=== PATIENT | male | born 1955 | race African-American/Black ===

== ENCOUNTER 2018-09-02 12:01 | Emergency (ER) | payer MEDICAID ==
[~2018-09-02] VITALS: Ht 188 cm; Wt 120.2 kg
--- NOTE | 2018-09-02 12:24 | NUR ---
came to er complaints of chest pain and shortness of breath with some wheezing. placed on monitor
--- NOTE | 2018-09-02 12:28 | NUR ---
ekg done which shows stemi . ekg faxed to [facility] er
[2018-09-02] MEDS ORDERED: Nitroglycerin 2% oint pkt TOPIC ONE (12:30)
--- NOTE | 2018-09-02 12:30 | NUR ---
patient has been accepted at [facility] er 911 has been summond to come for transfer. complaints of chest pain 07/03. meds given as orderd
[2018-09-02] MEDS ORDERED: GLIPIZIDE5 MG ORAL (12:31)
[2018-09-02] MEDS ORDERED: ASPIR 8181 MG ORAL (12:31)
[2018-09-02] MEDS ORDERED: ATORVASTATIN CA20 MG ORAL (12:31)
[2018-09-02] MEDS ORDERED: FUROSEMIDE20 M1 ORAL (12:31)
[2018-09-02] MEDS ORDERED: GABAPENTIN300 MG ORAL (12:31)
[2018-09-02] MEDS ORDERED: HYZAAR 100-251 EACH ORAL (12:31)
[2018-09-02] MEDS ORDERED: METFORMIN HCL500 M1 ORAL (12:31)
[2018-09-02] MEDS ORDERED: AMLODIPINE BESY10 MG ORAL (12:31)
[2018-09-02] MEDS ORDERED: Heparin 5000 units/ml inj IV ONE (12:45)
--- NOTE | 2018-09-02 12:45 | Emergency Room Report ---
History of Present Illness General Chief Complaint: Dyspnea/Respdistress Source: Patient Present Illness HPI Patient presents with weakness and shortness of breath chest pain vomiting and diarrhea for 4 days. He started having chest pain that was more constant on . No vomiting blood. No melena or hematochezia. He feels some crampiness in his abdomen. Diaphoresis without fevers on occasion. Generalized weakness. Seen at [facility] and sent for evaluation for gastroenteritis and poorly controlled diabetes. He is a type II diabetic on insulin also. He stopped taking his insulin when he stopped eating. He's had dyspnea on exertion and some orthopnea. He also has some swelling in his legs. He denies having prior congestive heart failure. The pain in his chest is rated 7/10 and worse with exertion. No palpitations. No joint pain, rashes, headache. Allergies: Coded Allergies: No Known Allergies (Unverified , 09/02/18) Patient History Past Medical History: see triage record Social History: Denies: smoking Social History Narrative with Niece Reviewed Nursing Documentation: PMH: Agreed; PSxH: Agreed Nursing Documentation-PMH Past Medical History: No History, Except For Hx Hypertension: Yes Hx Diabetes: Yes Review of Systems All Other Systems: negative except mentioned in HPI Physical Exam Vital Signs Date Time Temp Pulse Resp B/P (MAP) Pulse Ox O2 Delivery O2 Flow Rate FiO2 09/02/18 12:10 98.6 91 16 127/75 85 Room Air Sp02 EP Interpretation: reviewed, abnormal - Interpreted as low by me General Appearance: no apparent distress, GCS 15, other - ill Head: normocephalic Eyes: bilateral eye normal inspection, bilateral eye PERRL ENT: moist mucus membranes Neck: supple Respiratory: rales - bilat Cardiovascular #1: regular rate, rhythm, edema - bilat Cardiovascular #2: 2+ radial (R) Gastrointestinal: normal inspection, normal bowel sounds, non tender, no mass, non-distended Musculoskeletal: back normal, normal range of motion, no calf tenderness Neurologic: alert, oriented x3 Skin: normal inspection, warm/dry Procedures Critical Care Time Critical Care Time Total Critical Care Time: 30 min bedside evaluation and treatment excludes procedures (EKG). Reason for critical care: STEMI, CHF, hyperglycemia Possible complications: hypotension, hypertension, MN, shock, arrhythmias, metabolic acidosis, end organ damage, respiratory failure. Interventions: aspirin, plavix, lasix, heparin, insulin Course: Diabetic patient presented with GI symptoms and chest pain. EKG revealed posterior STEMI. Aspirin, Plavix administered. Mediate contact with [facility] lead to acceptance. Heparin administered. Patient with CHF on chest x- ray and Lasix administered. Glucose greater than 400 and insulin administered. Presented to [facility] with emergent transfer [facility]. [facility] attending. Consultations: nursing staff, EMS, family Performed by: Dr. Love Tolerated well condition = critical but stable for transfer labs called to Medical Decision Making Diagnostic Impression: Primary Impression: ST elevation myocardial infarction (STEMI) of true posterior wall Additional Impressions: CHF (congestive heart failure) Qualified Codes: I50.9 - Heart failure, unspecified Diabetes Qualified Codes: E11.8 - Type 2 diabetes mellitus with unspecified complications; Z79.4 - snf (current) use of insulin Renal failure Qualified Codes: N17.9 - Acute kidney failure, unspecified Nausea vomiting and diarrhea ER Course Patient presents with symptoms of gastroenteritis but also has chest pain and rales. Differential includes acute microinfarction, congestive heart failure, diabetic ketoacidosis amongst others. Patient be evaluated with EKG, chest x- ray and labs. As he has evidence of fluid overload we are unable to give him a fluid bolus at this time. He will be treated with antiemetics and Pepcid. EKG with posterior myocardial infarction STEMI. [facility] contacted immediately ( EKG fax @ 12:34). Patient was presented to Dr. Santamaria at 1240 and accepted. Patient given aspirin, nitrates, Lasix, Plavix and heparin. Insulin also given. Report to [facility]. Emergent transfer. Labs returned after patient transferred. Leukocytosis, renal failure, elevated BNP. Elevated troponin Labs reported to Dr. Santamaria at [facility]. (at that time, he was being evaluated by Cardiology in ED). Laboratory Tests Test 09/02/18 12:38 White Blood Count 15.5 K/UL (4.8-10.8) H Red Blood Count 4.53 M/UL (4.70-6.10) L Hemoglobin 13.9 G/DL (14.2-18.0) L Hematocrit 40.6 % (42.0-52.0) L Mean Corpuscular Volume 90 FL (80-99) Mean Corpuscular Hemoglobin 30.7 PG (27.0-31.0) Mean Corpuscular Hemoglobin Concent 34.2 G/DL (32.0-36.0) Red Cell Distribution Width 11.1 % (11.6-14.8) L Platelet Count 304 K/UL (150-450) Mean Platelet Volume 7.6 FL (6.5-10.1) Neutrophils (%) (Auto) 83.5 % (45.0-75.0) H Lymphocytes (%) (Auto) 7.3 % (20.0-45.0) L Monocytes (%) (Auto) 8.0 % (1.0-10.0) Eosinophils (%) (Auto) 0.0 % (0.0-3.0) Basophils (%) (Auto) 1.2 % (0.0-2.0) Prothrombin Time 10.6 SEC (9.30-11.50) Prothrombin Time INR 1.0 (0.9-1.1) PTT 28 SEC (23-33) Sodium Level 127 MMOL/L (136-145) L Potassium Level 4.7 MMOL/L (3.5-5.1) Chloride Level 90 MMOL/L (98-107) L Carbon Dioxide Level 25 MMOL/L (21-32) Anion Gap 13 mmol/L (5-15) Blood Urea Nitrogen 46 mg/dL (7-18) H Creatinine 2.2 MG/DL (0.55-1.30) H Estimate Glomerular Filtration Rate 37.2 mL/min (>60) Glucose Level 444 MG/DL (74-106) H Calcium Level 9.4 MG/DL (8.5-10.1) Total Bilirubin 1.0 MG/DL (0.2-1.0) Aspartate Amino Transferase (AST) 215 U/L (15-37) H Alanine Aminotransferase (ALT) 80 U/L (12-78) H Alkaline Phosphatase 90 U/L (46-116) Total Creatine Kinase 2439 U/L (26-308) H Troponin I 28.619 ng/mL (0.000-0.056) Pro-B-Type Natriuretic Peptide 4642 pg/mL (0-125) H Total Protein 8.1 G/DL (6.4-8.2) Albumin 3.4 G/DL (3.4-5.0) Globulin 4.7 g/dL Albumin/Globulin Ratio 0.7 (1.0-2.7) L EKG Diagnostic Results Rate: normal Rhythm: NSR ST Segments: other - Posterior MN Rhythm Strip Diag. Results EP Interpretation: yes Rhythm: NSR, no PVC's, no ectopy Chest X-Ray Diagnostic Results Chest X-Ray Diagnostic Results : Chest X-Ray Ordered: Yes # of Views/Limited/Complete: 1 View Indication: Other EP Interpretation: Yes Interpretation: no effusion, no pneumothorax, other - pulm edema Impression: Other Electronically Signed by: Electronically signed by Medhat Love MD Last Vital Signs Date Time Temp Pulse Resp B/P (MAP) Pulse Ox O2 Delivery O2 Flow Rate FiO2 09/02/18 12:10 98.6 91 16 127/75 85 Room Air Status: improved Disposition: [facility] - Higher level of care Condition: Critical Medhat Love MD Sep 02, 2018 12:45
--- NOTE | 2018-09-02 12:54 | NUR ---
ED Nurse Note: Patient denies having any recent surgery, procedure or bleeding.
[2018-09-02 12:56] LABS: BASOPHILS % (AUTO) 1.2 % (0.0-2.0); HEMATOCRIT 40.6 % (42.0-52.0); HEMOGLOBIN 13.9 G/DL (14.2-18.0); LYMPHOCYTES % (AUTO) 7.3 % (20.0-45.0); MEAN CORPUSCULAR VOLUME 90 FL (80-99); NEUTROPHILS % (AUTO) 83.5 % (45.0-75.0); PLATELET COUNT 304 K/UL (150-450); RED BLOOD COUNT 4.53 M/UL (4.70-6.10); RED CELL DISTRIBUTION WIDTH 11.1 % (11.6-14.8); WHITE BLOOD COUNT 15.5 K/UL (4.8-10.8)
[2018-09-02 13:00] VITALS: BP 126/70
[2018-09-02] MEDS ORDERED: Insulin Human Regular 100units/ml 3ml IV ONE (13:00)
--- NOTE | 2018-09-02 13:00 | NUR ---
[facility] is here to transport patient to [facility]
[2018-09-02] MEDS ORDERED: Insulin Human Regular 100units/ml 3ml ONE (13:02)
[2018-09-02 13:05] VITALS: BP 126/70
--- NOTE | 2018-09-02 13:05 | NUR ---
patient left the er with [facility]
[2018-09-02 13:16] LABS: ANION GAP 13 mmol/L (5-15); BLOOD UREA NITROGEN 46 mg/dL (7-18); CALCIUM 9.4 MG/DL (8.5-10.1); CARBON DIOXIDE 25 MMOL/L (21-32); CHLORIDE 90 MMOL/L (98-107); CREATININE 2.2 MG/DL (0.55-1.30); POTASSIUM 4.7 MMOL/L (3.5-5.1); SODIUM 127 MMOL/L (136-145)
[2018-09-02 13:30] LABS: ALANINE AMINOTRANSFERASE 80 U/L (12-78); ALBUMIN 3.4 G/DL (3.4-5.0); ALBUMIN/GLOBULIN RATIO 0.7 (1.0-2.7); ALKALINE PHOSPHATASE 90 U/L (46-116); ASPARTATE AMINO TRANSFERASE 215 U/L (15-37); CREATINE KINASE 2439 U/L (26-308)
--- NOTE | 2018-09-02 13:30 | NUR ---
lab results faxed to [facility] er
--- NOTE | 2018-09-02 14:15 | Diagnostic Imaging Report ---
Indication: Chest pain Technique: One view of the chest Comparison: none Findings: There is bilateral airspace disease in a predominantly perihilar hilar distribution. The heart size is upper limits of normal. No definite effusions. Impression: Bilateral extensive perihilar infiltrates versus edema
== END 2018-09-02 13:05 | disposition short-term general hospital (02) ==
LOC: EMR 12:45
DX: I21.29 ST elevation (STEMI) myocardial infarction involving other sites (principal); I11.0 Hypertensive heart disease with heart failure; I50.9 Heart failure, unspecified; E11.9 Type 2 diabetes mellitus without complications; N19 Unspecified kidney failure; R11.2 Nausea with vomiting, unspecified; R19.7 Diarrhea, unspecified
CPT/HCPCS: 71045; 80053; 82550; 83880; 84484; 85025; 85610; 85730; 93005; 96374; 96375; 99291; J1644; J1815; J1940